=== PATIENT | female | born 1950 | race Caucasian/White ===

== ENCOUNTER 2017-04-02 21:26 | Emergency (ER) | payer MEDICARE ==
[~2017-04-02] VITALS: Ht 157.5 cm; Wt 100.2 kg
[2017-04-02] MEDS ORDERED: LISINOPRIL5 MG PO (21:54)
[2017-04-02] MEDS ORDERED: LIPITOR10 MG PO (21:55)
[2017-04-02] MEDS ORDERED: ASPIR-LOW81 MG PO (21:55)
[2017-04-02] MEDS ORDERED: QVAR8.7 G1 INH (21:56)
[2017-04-02] MEDS ORDERED: VENTOLIN HFA18 GM INH (21:56)
--- NOTE | 2017-04-03 14:24 | EKG ---
[facility] [address] [facility] [place] [address] Signed Normal sinus rhythm Left axis deviation Abnormal ECG No previous ECGs available Confirmed by PAVITHRA SANTIAGO MD ([id number] on 04/03/2017 2:23:57 PM Electronically Signed By: PAVITHRA SANTIAGO MD 04/03/17 1424 PATIENT NAME: JOY CRAWFORD Electrocardiogram DATE OF : 46 PHYSICIAN: PAVITHRA SANTIAGO MD REPORT #: [id number] REPORT IS CONFIDENTIAL AND NOT TO BE RELEASED WITHOUT AUTHORIZATION
== END 2017-04-02 23:45 | disposition home or self-care (01) ==
LOC: ED 21:26
DX: R42 Dizziness and giddiness (principal); I10 Essential (primary) hypertension; E78.5 Hyperlipidemia, unspecified; Z79.899 Other long term (current) drug therapy; Z79.82 Long term (current) use of aspirin
CPT/HCPCS: 70450; 80053; 85025; 85610; 85730; 93005; 93010; 99284